=== PATIENT | female | born 2000 | race Hispanic/Latino ===

== ENCOUNTER 2020-01-07 13:05 | Observation (INO) | payer OTHER, SELFPAY ==
--- NOTE | 2020-01-07 13:05 | OBADM ---
This patient, Lenore Box, admitted to the OB room Labor/Delivery/Recovery 105 for observation. Patient/family oriented to hospital policies and general routines including ID bracelet, bed and alarms, visiting hours, pain management, procedures, bathroom and other care routines, personal items, smoking policy, room service/diet, and visiting hours. Patient/Family are encouraged to report perceived risks to care and to ask questions if they do not understand what they are told or what they should do.
[2020-01-07 16:41] VITALS: BMI 32.3
--- NOTE | 2020-01-16 07:44 | PM.OBTRLD ---
OB - Triage/Final Diagnosis Visit Information Date of evaluation: 01/09/20 Reason for evaluation: threatened labor
== END 2020-01-07 16:15 | disposition home or self-care (01) ==
PROVIDERS: Admitting Provider Obstetrics & Gynecology; Visit Provider Obstetrics & Gynecology
DX: O47.1 False labor at or after 37 completed weeks of gestation (principal); Z3A.40 40 weeks gestation of pregnancy
CPT/HCPCS: G0378; G0379

== ENCOUNTER 2020-01-09 04:54 | Inpatient (IN) | payer OTHER, SELFPAY ==
[2020-01-09] VITALS (47 sets, daily range): BP systolic 96–147; BP diastolic 65–120; PULSE 69–152; RESP 17–20; TEMP 36.7–37.4; O2SAT 96–100; BMI 30.2
--- NOTE | 2020-01-09 05:35 | LDADM ---
This patient, Lenore Box, was admitted to Labor/Delivery/Recovery 104 on 01/09/20 at 04:54. Plans for labor, pain management and were discussed with patient. Patient/family oriented to hospital policies and general routines including ID bracelet, bed and alarms, visiting hours, pain management, procedures, bathroom and other care routines, personal items, smoking policy, room service/diet and guest tray routines, infant security routines, and visiting hours. Patient/Family are encouraged to report perceived risks to care and to ask questions if they do not understand what they are told or what they should do. See OBIX for further documentation.
[2020-01-09 05:37] LABS: Basophils Absolute Auto 0.1 K/mm3 (0.0-0.1); Basophils Percent Auto 0.5 % (0.2-1.2); Eosinophils Absolute Auto 0.3 K/mm3 (0-0.3); Eosinophils Percent Auto 2.6 % (0-4.4); Hematocrit 34.9 % (37.0-47.0); Hemoglobin 10.5 g/dL (12.0-15.0); Immature Granulocyte Absolute 0.06 K/mm3 (0.00-0.031); Immature Granulocyte Percent A 0.6 % (0-0.5); Lymphocytes Percent Auto 12.4 % (18.3-44.2); Mean Corpuscular HGB Conc 30.1 g/dl (32-36); Mean Corpuscular Hemoglobin 22.7 pg (26-34); Mean Corpuscular Volume 75.4 fl (80-100); Mean Platelet Volume 11.6 fl (7.4-10.4); Monocytes Absolute Auto 0.8 K/mm3 (0.1-0.6); Monocytes Percent Auto 8.6 % (2.6-8.5); Neutrophils Absolute Auto 7.3 K/mm3 (1.3-6.7); Neutrophils Percent Auto 75.3 % (45.5-73.1); Platelet Count Result 152 k/mm3 (150-375); Red Blood Count 4.63 M/mm3 (4.2-5.4); Red Cell Distribution Width 15.2 % (11.5-14.5); White Blood Count 9.7 K/mm3 (4.5-10.0)
[2020-01-09] MEDS: LACTATED RINGERS 1,000 ML 125 ML IV CONT ×4 (05:52→18:10)
--- NOTE | 2020-01-09 06:22 | P.PNAN_ITS ---
Anes - Eval Pre Procedure Procedure: Labor epidural Date/Time: 01/09/20 06:22 Surgeon: Irene Preop Diagnosis: pain during labor Pre Op Diagnosis: contractions Patient Data Age: 19 Gender: F Height: 1.55 m Weight: 72.7 kg Last Vital Signs Temp 36.9 C 01/09/20 05:12 Pulse 96 01/09/20 05:31 Resp 20 01/09/20 05:12 BP 129/86 01/09/20 05:31 Allergies Allergy/AdvReac Type Severity Reaction Status Date / Time No Known Allergies Allergy Verified 12/05/19 13:44 Home Medications Medication Instructions Recorded Confirmed Type PNV cmb#95-ferrous fumarate-FA 1 tablet PO DAILY 12/05/19 12/05/19 History [] Laboratory Tests 01/09/20 01/09/20 05:30 05:30 WBC 9.7 K/mm3 K/mm3 (4.5-10.0) RBC 4.63 M/mm3 M/mm3 (4.2-5.4) Hgb 10.5 g/dL L g/dL (12.0-15.0) Hct 34.9 % L % (37.0-47.0) MCV 75.4 fl L fl (80-100) MCH 22.7 pg L pg (26-34) MCHC 30.1 g/dl L g/dl (32-36) RDW 15.2 % H % (11.5-14.5) Plt Count 152 k/mm3 k/mm3 (150-375) MPV 11.6 fl H fl (7.4-10.4) Immature Gran % (Auto) 0.6 % H % (0-0.5) Neut % (Auto) 75.3 % H % (45.5-73.1) Lymph % (Auto) 12.4 % L % (18.3-44.2) [place] % (Auto) 8.6 % H % (2.6-8.5) Eos % (Auto) 2.6 % % (0-4.4) Baso % (Auto) 0.5 % % (0.2-1.2) Lymph # (Auto) 1.20 K/mm3 K/mm3 (0.9-3.2) [place] # (Auto) 0.8 K/mm3 H K/mm3 (0.1-0.6) Eos # (Auto) 0.3 K/mm3 K/mm3 (0-0.3) Baso # (Auto) 0.1 K/mm3 K/mm3 (0.0-0.1) Abs Immat Gran (auto) 0.06 K/mm3 H K/mm3 (0.00-0.031) Absolute Neuts (auto) 7.3 K/mm3 H K/mm3 (1.3-6.7) Absolute Nucleated RBC 0.0 K/mm3 K/mm3 (0.0-0.012) Nucleated RBC % 0.0 % % (0.0-0.2) RPR Pending Patient hx anesthesia problems: none Family hx anesthesia problems: none PMFSH Social History Social History Smoking status: Never smoker Substance use: never Spiritual care concerns: No Exam Day of Procedure 01/09/20 06:22
--- NOTE | 2020-01-09 07:13 | P.HP_ITS ---
Obstetrics - Admit Note Admission Note: record reviewed. No pertinent additions to the history and/or any subsequent changes in the physical findings that are not consistent with the expected course of the were found. Pt arrived in labor, SVE 3/100/-2 AROM moderate amount of odorless meconium stained fluid. anticipate va ginal delivery Additions to the history and/or subsequent changes in the physical findings follow. None.
[2020-01-09 09:42] LABS: Rapid Plasma Reagin Non-Reactive (NonReactive)
[2020-01-09] MEDS: OXYTOCIN 30 UNITS/NS 500 ML 30 UNITS/500 ML BAG IV CONT (12:48)
[2020-01-09] MEDS: ONDANSETRON INJ 4 MG/2 ML VIAL IV PUSH (14:55)
[2020-01-09] MEDS: MISOPROSTOL 200 MCG TABLET 1000 MCG (17:59)
--- NOTE | 2020-01-09 18:12 | PM.OBPRVD ---
OB - Delivery Note Procedure Delivery date: 01/09/20 Procedure: vaginal delivery Delivery augmentation: rupture of membranes Delivery monitor: external FHT and external uterine Route of delivery: Laceration description: Labial (right) Delivery repair: vicryl Specimen: No Estimated blood loss (mL): 731 Anesthesia type: Local (for repair) Disposition: other () Complications: bleeding heavier than expected after placenta, pitocin running, cytotec 1000mcg, manual exploration of uterus and small piece of amnion removed. bleeding slowed down significantly and mother and baby in stabel condition Baby Date of : 01/09/20 Time of : 17:43 Weeks of gestation at delivery: 40 Infant gender: Male Weight (pounds): 7 Weight (ounces): 8 presentation: vertex position: Left Occiput Anterior Placenta delivery description: Spontaneous and Manual Removal cord vessel description: 3 Vessels, Nuchal Cord, Tight (X3) and Clamped/Cut score one minute: 8 score five minutes: 9
[2020-01-09] MEDS: ceFAZolin 2 GM/D5W 50 ML 2 GM/50 ML BAG IVPB (18:19)
[2020-01-09] MEDS: OXYTOCIN 30 UNITS/NS 500 ML 30 UNITS/500 ML BAG 125 UNITS IV CONT (18:19)
--- NOTE | 2020-01-09 20:46 | OBPPTRN ---
Patient transferred to post room #284 via wheelchair with in crib. Support person present. Oriented to unit, room, information board, rooming in, admission packet and security measures. Patient verbalizes understanding.
[2020-01-10] MEDS: IBUPROFEN 600 MG TABLET PO ×3 (00:33→13:25)
[2020-01-10] MEDS: ACETAMINOPHEN 325 MG TABLET 650 MG PO ×4 (05:50→17:50)
[2020-01-10 06:08] LABS: Hematocrit 25.5 % (37.0-47.0); Hemoglobin 7.8 g/dL (12.0-15.0)
--- NOTE | 2020-01-10 07:20 | PC.NURSE ---
PT introductions made and plan of care discussed per post , pain management, breast feeding, daily care activities and supplementation. Pending discharge to home.
[2020-01-10] MEDS: BENZOCAINE 20% AER SPR (*SP) 56 GM CAN 1 SPRAY TOPICAL (09:30)
[2020-01-10] MEDS: WITCH HAZEL 40 PADS 1 PAD TOPICAL (09:30)
[2020-01-10] MEDS: LANOLIN (LANSINOH) 7.5 GM CREAM 1 APPLIC TOPICAL (09:38)
[2020-01-10] MEDS: DOCUSATE SODIUM 100 MG CAPSULE PO ×2 (09:38→17:50)
[2020-01-10] MEDS: POLYSACCHARIDE IRON COMPLEX 150 MG CAPSULE PO ×2 (09:38→17:50)
[2020-01-10] MEDS: MULTIVIT/MIN/PREN/FOL AC/IRON TABLET 1 TAB PO (09:38)
--- NOTE | 2020-01-10 10:18 | PM.OBPNVD ---
OB - PN: Subj Subjective Date/time seen: 01/10/20 10:18 Patient comments: no complaints, pain well controlled and other (Lochia similar to menses) [place] baby status: doing well OB - PN: Obj Data Labs CBC & Chem 7: 01/10/20 05:59 Labs: Laboratory Results - last 24 hr 01/10/20 05:59 Hgb 7.8 L Hct 25.5 L OB - PN A/P Plan day: 1 (s/p vaginal delivery, doing well) Plan: routine care Time Spent With Patient Time: Total time spent is greater than 50% in coordination of care (as documented) at patient's floor/unit and/or counseling patient: Exam Const: General: no acute distress GI: Inspection: other (Fundus firm and nontender at umbilicus) GI Palp: Yes Soft to palpation and No Tenderness to palpation present (GI) Extrem: General: no edema
[2020-01-10 10:30] VITALS: BP 100/64; PULSE 77; RESP 16; RESP 18; TEMP 36.6; O2SAT 100
[2020-01-10 21:30] VITALS: BP 111/66; PULSE 80; RESP 17; TEMP 36.9
--- NOTE | 2020-01-11 07:20 | PC.NURSE ---
P introductions made and plan of care discussed per post , pain management, breast feeding, daily care activities and pending discharge to home. PT verbalized understanding of such care.
--- NOTE | 2020-01-11 08:39 | P.PNOB_ITS ---
OB - PN: Subj Subjective Date/time seen: 01/11/20 08:39 Patient comments: no complaints, pain well controlled and other (Lochia similar to menses) [place] baby status: doing well OB - PN: Obj Data Labs CBC & Chem 7: 01/10/20 05:59 OB - PN A/P Plan day: 2 (s/p vaginal delivery, doing well) Plan: routine care, discharge home and other (Follow up in office in 4 weeks) Time Spent With Patient Time: Total time spent is greater than 50% in coordination of care (as documented) at patient's floor/unit and/or counseling patient: Exam Const: General: no acute distress GI: Inspection: other (Fundus firm and nontender below umbilicus) GI Palp: Yes Soft to palpation and No Tenderness to palpation present (GI) Extrem: General: no edema
--- NOTE | 2020-01-11 10:00 | PC.NURSE ---
Patient viewed the discharge video Mother & Baby Care, The First Two Weeks . Patient was given the opportunity and encouraged to ask questions. Patient verbalized understanding of information shared and has been given the mother/baby guide for home reference.
[2020-01-11] MEDS: DOCUSATE SODIUM 100 MG CAPSULE PO (10:12)
[2020-01-11] MEDS: IBUPROFEN 600 MG TABLET PO (10:13)
[2020-01-11] MEDS: POLYSACCHARIDE IRON COMPLEX 150 MG CAPSULE PO (10:14)
[2020-01-11] MEDS: MULTIVIT/MIN/PREN/FOL AC/IRON TABLET 1 TAB PO (10:14)
[2020-01-11 10:15] VITALS: BP 128/75; PULSE 107; RESP 18; TEMP 36.8; O2SAT 99
--- NOTE | 2020-01-11 10:15 | PC.NURSE ---
PT received discharge instructions per protocol and verbalized understanding of such instructions
--- NOTE | 2020-01-11 10:46 | PC.NURSE ---
PT discharged to home ambulatory accompanied by both her mother and infant to waiting car. Follow up appts confirmed
--- NOTE | 2020-01-15 08:24 | PCCCNOTE ---
Care Coordination Note: Met with pt. today. Pt. lives at home with her family. FOB is involved and supportive. Pt. has all necessary belongings for baby including a crib, car seat, clothing, diapers etc. Pt. denies any further needs. Reports family support and involvement.
--- NOTE | 2020-01-16 07:47 | PM.OBDSVD ---
DS: Diagnosis Admitting Diagnosis Admitting Diagnosis: Encounter for supervision of normal , unspecified, third trimester OB - DS: Summary OB Procedures : None OB Procedures Intrapartum: Spontaneous Vag Delivery OB Procedures: : None Time Spent with Patient Time attestation: Total time spent providing and/or coordinating discharge services: Discharge Plan Discharge Attending physician on discharge: Inez Bonilla Consulting providers: Eloina Tatum Discharging Clinician: Michelle Estrada Patient Disposition: Home, Self-Care Activity: may shower and pelvic rest Diet: regular Discharge Instructions: Education: Mom and Baby Guide Given to: Mother Follow-Up: Call your delivering provider's office for an appointment to be seen in: 4 Weeks Mom and baby should come to the [facility] for the follow-up appointment. Appointment Date/Time: January 13, 2020 at 9:00 am What to expect at your follow-up visit: Blood Pressure Check Call [phone] if you are unable to keep your appointment time. BREAST CARE: 1. Wear a snug supportive bra. 2. For engorgement discomfort: Breast Feeding: A. Apply warm moist washcloths B. Express milk as needed to relieve engorgement C. Wear loose clothing Bottle Feeding: A. May apply ice packs 3. For sore nipples: A. Identify correct latch-on B. Apply warm moist washcloths before and after nursing C. Air dry nipples after nursing D. May apply Lansinoh cream to nipples PERINEAL CARE: 1. Until bleeding stops, use your ever bottle after urinating 2. Change your pad frequently throughout the day 3. You may take sitz baths several times a day (fill your bathtub with warm water and soak for 20 minutes.) Do NOT bathe in the water 4. No tub baths until seen by your physician - You may shower ACTIVITY: 1. Rest as much as possible. 2. Do not exercise or lift anything heavier than your baby (such as laundry or other children.) 3. Avoid stairs or driving as much as possible. 4. Do not put anything into the vagina. No douching, tampons, or sexual activity until seen by physician. NOTIFY PHYSICIAN IF YOU HAVE ANY QUESTIONS OR IF ANY OF THE FOLLOWING SYMPTOMS OCCUR: 1. If your perineum becomes red, swollen, or more painful than what you have experienced in the hospital. 2. If your vaginal bleeding becomes foul smelling. 3. If your vaginal bleeding becomes more heavy than a period or if your bleeding changes from pink to bright red. However, you may pass an occasional walnut-sized clot once or twice for the first week . 4. If you experience a sharp, shooting pain in you calves. 5. If you discover a hard, reddened area on your breast or if you experience flu-like symptoms. 6. Call for temp 100.4 or greater DIET: 1. Eat regular, well-balanced meals. 2. Drink plenty of fluids daily. If , drink to thirst. Patient Instructions: Antibiotic Form Stand Alone Forms: General Discharge Information Follow-up/Referrals: Eloina Tatum CNM [Certified Nurse Reservations Manager] - 4 Weeks Discharge Medications: New ibuprofen 600 mg Tablet 600 mg PO Q6H PRN (Reason: Cramping) Qty: 60 RF: 0 Continued PNV cmb#95-ferrous fumarate-FA [] 28 mg iron- 800 mcg Tablet 1 tablet PO DAILY RF: 0 Date of admission: 01/09/20 04:54 Primary Care Provider: UNKNOWN,DOCTOR Admitting Provider: Inez Bonilla Discharge Date/Time: 01/11/20 10:46 Attending physician on admission: Michelle Estraad
== END 2020-01-11 10:46 | disposition home or self-care (01) | DRG 560 ==
LOC: ANHLDR 05:18 → ANHOB2 01-11 08:40 → ANHLDR 01-14 08:21 → ANHOB2 01-14 08:21
PROVIDERS: Advanced Practice Midwife; Admitting Provider Obstetrics & Gynecology; Visit Provider Obstetrics & Gynecology
DX: O77.0 Labor and delivery complicated by meconium in amniotic fluid (principal); O69.1XX0 Labor and delivery complicated by cord around neck, with compression, not applicable or unspecified; O70.0 First degree perineal laceration during delivery; Z3A.40 40 weeks gestation of pregnancy; Z37.0 Single live birth
CPT/HCPCS: 36415; 85014; 85018; 85025; 86592; 86850; 86900; 86901; A9270; J0690; J2405; J2590; J3010; J7120

== ENCOUNTER 2022-01-14 21:01 | Observation (INO) | payer OTHER, SELFPAY ==
[2022-01-14] VITALS (7 sets, daily range): BP systolic 97–106; BP diastolic 52–65; PULSE 104–113; BMI 29.1
[2022-01-14 22:02] LABS: Add Urine Microscopic? YES; Appearance Urine Clear (Clear); Bilirubin Urine Negative (Negative); Blood Urine Negative (Negative); Color Urine Yellow (Yellow); Glucose Urine UA Negative (Negative); Ketones Urine 1+ mg/dL (Negative); Leukocyte Esterase Ur Negative LEU/UL (Negative); Mucus Urine Moderate /lpf; Nitrate Urine Negative (Negative); Protein Urine Negative (Negative); Squamous Epithelial Cell Urine Rare /hpf (Few); Urobilinogen Urine Negative mg/dL (<2.0)
[2022-01-14 22:26] LABS: Specific Grav Ur 1.032 (1.001-1.035)
--- NOTE | 2022-01-14 22:29 | OBADM ---
This patient, Lenore Box, admitted to the OB room OB Post 117 for observation. Patient/family oriented to hospital policies and general routines including ID bracelet, bed and alarms, visiting hours, pain management, procedures, bathroom and other care routines, personal items, smoking policy, room service/diet, and visiting hours. Patient/Family are encouraged to report perceived risks to care and to ask questions if they do not understand what they are told or what they should do.
--- NOTE | 2022-02-06 08:25 | PM.OBTRLD ---
OB - Triage/Final Diagnosis Visit Information Comments/Additional reasons for admission: I have assessed the risk for this patient, Lenore Box, and determined that she would benefit from observation care. Evaluation Laboratory results: Laboratory Tests 01/14/22 21:45 Urine Color Yellow Urine Appearance Clear Urine pH 6.0 Ur Specific [place] 1.032 Urine Protein Negative Urine Glucose (UA) Negative Urine Ketones 1+ H Ur Blood (Man) Negative Urine Nitrate Negative Urine Bilirubin Negative Urine Urobilinogen Negative Leukocyte Esterase Rfl Negative Urine RBC 3-5 H Ur Squamous Epith Cells Rare Urine Mucus Moderate H Final Diagnosis (1) False labor: Code(s): O47.9 - False labor, unspecified Status: Acute
== END 2022-01-14 22:57 | disposition home or self-care (01) ==
PROVIDERS: Admitting Provider Obstetrics & Gynecology; Visit Provider Obstetrics & Gynecology
DX: O47.02 False labor before 37 completed weeks of gestation, second trimester (principal); Z3A.22 22 weeks gestation of pregnancy
CPT/HCPCS: 81001; G0378; G0379

== ENCOUNTER 2022-05-21 12:23 | Inpatient (IN) | payer OTHER, SELFPAY ==
[2022-05-21] VITALS (22 sets, daily range): BP systolic 83–187; BP diastolic 44–143; PULSE 61–190; RESP 16; TEMP 36.2–36.8; O2SAT 99; BMI 33.8
--- NOTE | 2022-05-21 12:23 | LDADM ---
This patient, Lenore Box, was admitted to Labor 104 on 05/21/22 at 12:23. Plans for labor, pain management and were discussed with patient. Patient/family oriented to hospital policies and general routines including ID bracelet, bed and alarms, visiting hours, pain management, procedures, bathroom and other care routines, personal items, smoking policy, room service/diet and guest tray routines, infant security routines, and visiting hours. Patient/Family are encouraged to report perceived risks to care and to ask questions if they do not understand what they are told or what they should do. See OBIX for further documentation.
--- OUTSIDE RECORDS SUMMARY | 2022-05-21 12:44 | XMS_ITS | Encounter Summary ---
:2000 Author Care Team Providers Name Role Phone Latisha Wu Primary Care Provider [phone] Braeden Marley DO Primary Care Provider [phone] Reason for Visit None recorded. Assessment and Plan 1. Uterine size for dates discrepancy ? US, obstetric, follow-up Discussion Note: None recorded.Patient educational handouts: No information available. Plan of Care Reminders Provider Appointments U/S OB BPP 05/24/2022 Ultrasoundrn Tristan hernandez, TECH 10:30AM ? Nst 05/24/2022 Nst, , EQUIP 10:00AM ? Ob Routine 05/24/2022 Eloina Tatum CNM 11:00AM Lab None recorded. ? ? Referral None recorded. ? ? Procedures None recorded. ? ? Surgeries None recorded. ? ? Imaging US, Obstetric, 04/18/2022 [place] Follow-up Medications Name Start Date ? ? ondansetron 4 mg disintegrating tablet ? Place 1 tablet every day by translingual route as nee ded. + DHA ? Medications Administered None recorded. Vitals None recorded. Results Lab Results None recorded. Allergies Code Code System Name Reaction Severity Onset NKDA ? ? ? Notes: allergies to dust and animals Problems Name Status Onset Date Source ? Active 11/29/2021 ? Procedures Date Name Performed by ? 04/18/2022 US, Obstetric, Follow-up [place] [address]
--- OUTSIDE RECORDS SUMMARY | 2022-05-21 12:44 | XMS_ITS | Encounter Summary ---
:2000 Author Care Team Providers Name Role Phone Latisha Wu Primary Care Provider [phone] Braeden Marley DO Primary Care Provider [phone] Reason for Visit OB visit Assessment and Plan 1. Routine care Discussion Note: None recorded.Patient educational handouts: No information available. Plan of Care Reminders Provider Appointments U/S OB BPP 05/24/2022 10:30AM Ultrasoundr n Schedule, TECH ? Nst 05/24/2022 10:00AM Nst, , EQUI P ? Ob Routine 05/24/2022 11:00AM Eloina lerma CNM Lab None recorded. ? ? Referral None recorded. ? ? Procedures None recorded. ? ? Surgeries None recorded. ? ? Imaging None recorded. ? ? Medications Name Start Date ? ? ondansetron 4 mg disintegrating tablet ? Place 1 tablet every day by translingual route as nee ded. + DHA ? Medications Administered None recorded. Vitals Height Weight BMI Blood Pressure 5 ft 2 in 176 lbs 32.2 kg/m2 120/83 mm[Hg] Results Lab Results None recorded. Allergies Code Code System Name Reaction Severity Onset NKDA ? ? ? Notes: allergies to dust and animals Problems Name Status Onset Date Source ? Active 11/29/2021 ? Procedures Date Name Performed by ? 02/07/2022 US, Obstetric, Follow-up [place] [address] [place] [address] ([address])
--- OUTSIDE RECORDS SUMMARY | 2022-05-21 12:44 | XMS_ITS | Encounter Summary ---
:2000 Author Care Team Providers Name Role Phone Latisha Wu Primary Care Provider [phone] Braeden Marley DO Primary Care Provider [phone] Reason for Visit OB visit OB [id number] EDC 05/18/2022 LMP unsure Assessment and Plan Assessment Note Patient is _38__weeks . Discuss ed plan. 1. Routine care Discussion Note: None recorded.Patient [...] BMI Blood Pressure 5 ft 2 in 182 lbs 33.3 kg/m2 120/82 mm[Hg] Results Lab Results None recorded. Allergies Code Code System Name Reaction Severity Onset NKDA ? ? ? Notes: allergies to dust and animals Problems Name Status Onset Date Source ? Active 11/29/2021 ? Procedures Date Name Performed by ? 04/18/2022 US, Obstetric, Follow-up [place]
--- OUTSIDE RECORDS SUMMARY | 2022-05-21 12:44 | XMS_ITS | Encounter Summary ---
:2000 Author Care Team Providers Name Role Phone Latisha Wu Primary Care Provider [phone] Braeden Marley DO Primary Care Provider [phone] Reason for Visit OB visit OB [id number] EDC 05/18/2022 LMP unsure Assessment and Plan Assessment Note Patient is _37__weeks . Discuss ed plan. 1. Routine care [...] BMI Blood Pressure 5 ft 2 in 181 lbs 33.1 kg/m2 117/78 mm[Hg] Results Lab Results None recorded. Allergies Code Code System Name Reaction Severity Onset NKDA ? ? ? Notes: allergies to dust and animals Problems Name Status Onset Date Source ? Active 11/29/2021 ? Procedures Date Name Performed by ? 04/18/2022 US, Obstetric, Follow-up [place]
--- OUTSIDE RECORDS SUMMARY | 2022-05-21 12:44 | XMS_ITS | Encounter Summary ---
:2000 Author Care Team Providers Name Role Phone Latisha Wu Primary Care Provider [phone] Braeden Marley DO Primary Care Provider [phone] Reason for Visit OB visit Assessment and [...] BMI Blood Pressure 5 ft 2 in 178 lbs 32.6 kg/m2 112/72 mm[Hg] Results Lab Results None recorded. Allergies Code Code System Name Reaction Severity Onset NKDA ? ? ? Notes: allergies to dust and animals Problems Name Status Onset Date Source ? Active 11/29/2021 ? Procedures None recorded. Vaccine List None recorded. Social History Tobacco Smoking Status Never Smoker Do you have difficulty walking or climbing stairs? N What type of diet are you following? REGULAR What is the highest grade or level of school you have comple pola [id number]
--- OUTSIDE RECORDS SUMMARY | 2022-05-21 12:44 | XMS_ITS ---
:2000 Author Care Team Providers Name Role Phone ARIEL MARR Primary Care Provider [phone] ROBBIE DEL TORO DO Primary Care Provider [phone] Allergies Code Code System Name Reaction Severity Status Onset NKDA ? Notes: allergies to dust and animals Medications Name Status Start Date Stop Date ? ? azithromycin 500 mg tablet Completed 12/08/201910/18 take 2 tablet by oral route once metoclopramide 10 mg tablet Completed ? 04/2020 ondansetron 4 mg disintegrating tablet Active ? Not available Completed ? 11/07/2021 + DHA Active ? Not available Problems Name Status Onset Date Source ? Rubella Screening Status Unknown 10/20/2019 History , Childbirth and Puerperium Finding Unknown 11/2019 History , Childbirth and Puerperium Finding Unknown 02/2020 History Unknown 12/24/2019 ? Active 11/29/2021 ? Procedures Date Name Performed by ? 11/01/2021 US, Obstetric, 1St Trimester [place] [address] [place] [address] ([address]) 01/17/2022 US, Obstetric, 2Nd or 3Rd Trimester [facility] [address] [place] [address] ([address]) 02/07/2022 US, Obstetric, Follow-up [place] [address] [place] [address] (Work P
--- OUTSIDE RECORDS SUMMARY | 2022-05-21 12:44 | XMS_ITS | Encounter Summary ---
:2000 Author Care Team Providers Name Role Phone Latisha Wu Primary Care Provider [phone] Braeden Marley DO Primary Care Provider [phone] Reason for Visit OB visit OB [id number] EDC 05/18/2022 LMP unsure Assessment and Plan Assessment Note Patient is _39__weeks . Discuss ed plan. 1. Routine care [...] BMI Blood Pressure 5 ft 2 in 184 lbs 33.7 kg/m2 121/77 mm[Hg] Results Lab Results None recorded. Allergies Code Code System Name Reaction Severity Onset NKDA ? ? ? Notes: allergies to dust and animals Problems Name Status Onset Date Source ? Active 11/29/2021 ? Procedures Date Name Performed by ? 04/18/2022 US, Obstetric, Follow-up [place]
--- OUTSIDE RECORDS SUMMARY | 2022-05-21 12:44 | XMS_ITS | Encounter Summary ---
:2000 Author Care Team Providers Name Role Phone Latisha Wu Primary Care Provider [phone] Braeden Marley DO Primary Care Provider [phone] Reason for Visit OB visit OB [id number] EDC 05/18/2022 LMP unsure Assessment and Plan Assessment Note Patient is __34_weeks . Discuss ed plan. 1. Routine care [...] ft 2 in 178 lbs 32.6 kg/m2 102/68 mm[Hg] Results Lab Results None recorded. Allergies Code Code System Name Reaction Severity Onset NKDA ? ? ? Notes: allergies to dust and animals Problems Name Status Onset Date Source ? Active 11/29/2021 ? Procedures None recorded. Vaccine List None recorded. Social History Tobacco Smoking Status Never Smoker Do you have diffic
--- NOTE | 2022-05-21 13:02 | WPDOBADMIT ---
Obstetrics - Admit Note Admission Note: record reviewed. No pertinent additions to the history and/or any subsequent changes in the physical findings that are not consistent with the expected course of the were found. Pt arrived in active labor, anticipate vaginal delivery Additions to the history and/or subsequent changes in the physical findings follow. None.
[2022-05-21 13:10] LABS: Basophils Percent Auto 0.5 % (0.2-1.2); Eosinophils Absolute Auto 0.2 K/mm3 (0-0.3); Eosinophils Percent Auto 3.2 % (0-4.4); Hematocrit 38.1 % (37.0-47.0); Hemoglobin 11.8 g/dL (12.0-15.0); Immature Granulocyte Absolute 0.03 K/mm3 (0.00-0.031); Immature Granulocyte Percent A 0.5 % (0-0.5); Lymphocytes Absolute Auto 1.07 K/mm3 (0.9-3.2); Lymphocytes Percent Auto 17.1 % (18.3-44.2); Mean Corpuscular Hemoglobin 24.4 pg (26-34); Mean Corpuscular Volume 78.7 fl (80-100); Mean Platelet Volume 12.5 fl (7.4-10.4); Monocytes Absolute Auto 0.5 K/mm3 (0.1-0.6); Monocytes Percent Auto 7.3 % (2.6-8.5); Neutrophils Absolute Auto 4.5 K/mm3 (1.3-6.7); Neutrophils Percent Auto 71.4 % (45.5-73.1); Platelet Count Result 138 k/mm3 (150-375); Red Blood Count 4.84 M/mm3 (4.2-5.4); Red Cell Distribution Width 14.8 % (11.5-14.5); White Blood Count 6.3 K/mm3 (4.5-10.0)
--- NOTE | 2022-05-21 13:37 | PM.OBPNLAB ---
Pain Control Date/time seen: 05/21/22 13:37 pt resting in between contractions Pelvic Exam Comments: sve /-2 arom moderate amount of clear odorless fluid
[2022-05-21] MEDS: LACTATED RINGERS 1,000 ML 2 ML IV CONT (15:00)
[2022-05-21] MEDS: OXYTOCIN 30 UNITS/NS 500 ML 30 UNITS/500 ML BAG 125 UNITS IV CONT ×2 (15:02→17:41)
--- NOTE | 2022-05-21 17:18 | P.PCNOB_ITS ---
OB - Delivery Note Procedure Delivery date: 05/21/22 Procedure: vaginal delivery Induction method: None Delivery augmentation: Rupture of Membranes and Pitocin Delivery monitor: External FHT and External Uterine Route of delivery: Episiotomy description: None Laceration Description: None Specimen: No Quantitative Blood Loss (ml): 75 Anesthesia type: None Disposition: Floor [place] Baby Date of : 05/21/22 Time of : 17:07 Weeks of gestation at delivery: 40 Infant gender: Male Weight (pounds): 8 Weight (ounces): 7 presentation: vertex position: Left Occiput Anterior Placenta delivery description: Spontaneous Cord Vessel Description: 3 Vessels, Nuchal Cord, Loose and Reduced score one minute: 8 score five minutes: 9 Narrative: mother and baby skin to skin in stable condition
[2022-05-21] MEDS: IBUPROFEN 600 MG TABLET PO (17:26)
--- NOTE | 2022-05-21 17:42 | PC.NURSE ---
Medication entered in error and unable to change. Oxytocin IV started at 1502 at 2 ml/hr per verbal order from Mackenzie LE. OBIX documentation verifies this. orders of 2nd oxytocin bag at 125 ml/hr documented correctly in [facility].
[2022-05-21] MEDS: ACETAMINOPHEN 325 MG TABLET 650 MG PO (20:10)
[2022-05-21] MEDS: WITCH HAZEL 40 PADS 1 PAD TOPICAL (20:10)
[2022-05-21] MEDS: BENZOCAINE 20% AER SPR (*SP) 56 GM CAN 1 SPRAY TOPICAL (20:10)
--- NOTE | 2022-05-21 21:38 | PC.NURSE ---
05/21/2022 at 2045 Patient transferred to post room #281 via wheelchair. Support person present. Oriented to unit, room, information board, rooming in, admission packet and security measures. Patient verbalizes understanding. The patient states she understands Martiniqu[place] very well and will translate for her significant and mother when they are present.
[2022-05-22 00:45] VITALS: BP 123/75; PULSE 62; RESP 16; TEMP 36.6; O2SAT 97
[2022-05-22 04:00] VITALS: BP 108/70; PULSE 71; RESP 16; TEMP 36.6; O2SAT 98
[2022-05-22 06:23] LABS: Hematocrit 35.8 % (37.0-47.0); Hemoglobin 10.9 g/dL (12.0-15.0)
[2022-05-22 07:55] VITALS: BP 123/65; PULSE 58; RESP 18; TEMP 35.9; O2SAT 100
[2022-05-22 09:17] LABS: Rapid Plasma Reagin Non-Reactive (NonReactive)
[2022-05-22] MEDS: ACETAMINOPHEN 325 MG TABLET 650 MG PO (10:23)
[2022-05-22] MEDS: IBUPROFEN 600 MG TABLET PO (10:25)
--- NOTE | 2022-05-22 10:27 | P.PNOB_ITS ---
OB - PN: Subj Subjective Date/time seen: 05/22/22 10:27 Patient comments: no complaints and pain well controlled baby status: doing well and bottle feeding well Narrative: would like DC home at 24 hours OB - PN: Obj Data Labs CBC & Chem 7: 05/22/22 04:02 Labs: Laboratory Results - last 24 hr 05/21/22 05/21/22 05/21/22 13:05 13:05 13:05 WBC 6.3 RBC 4.84 Hgb 11.8 L D Hct 38.1 MCV 78.7 L MCH 24.4 L MCHC 31.0 L RDW 14.8 H Plt Count 138 L MPV 12.5 H Immature Gran % (Auto) 0.5 Neut % (Auto) 71.4 Lymph % (Auto) 17.1 L [place] % (Auto) 7.3 Eos % (Auto) 3.2 Baso % (Auto) 0.5 Lymph # (Auto) 1.07 [place] # (Auto) 0.5 Eos # (Auto) 0.2 Baso # (Auto) 0.0 Abs Immat Gran (auto) 0.03 Absolute Neuts (auto) 4.5 Absolute Nucleated RBC 0.0 Nucleated RBC % 0.0 RPR Non-reactive Blood Type O Positive Antibody Screen Negative 05/22/22 04:02 WBC RBC Hgb 10.9 L Hct 35.8 L MCV MCH MCHC RDW Plt Count MPV Immature Gran % (Auto) Neut % (Auto) Lymph % (Auto) [place] % (Auto) Eos % (Auto) Baso % (Auto) Lymph # (Auto) [place] # (Auto) Eos # (Auto) Baso # (Auto) Abs Immat Gran (auto) Absolute Neuts (auto) Absolute Nucleated RBC Nucleated RBC % RPR Blood Type Antibody Screen OB - PN A/P Plan day: 1 Plan: routine care and discharge home Comments: DC instructions given. Time Spent With Patient Time: Total time spent is greater than 50% in coordination of care (as documented) at patient's floor/unit and/or counseling patient: Time with patient: less than 15 minutes Exam Narrative: NAD abdomen soft, nontender, fundus firm below the umbilicus Extremities nontender, 1+ edema
--- NOTE | 2022-05-22 10:30 | PM.DS ---
DS: Admitting Diagnosis Discharge Date 05/22/22 Admitting Diagnosis term , labor DS: Discharge Diagnosis Discharge Diagnosis (1) , delivered: Code(s): O80 - Encounter for full-term uncomplicated delivery Status: Acute DS: Summary Hospital Course Hospital Course: Pt was admitted in labor and had an uncomplicated vaginal delivery and course. She was discharged home on post day 1. Status at Discharge Functional status at discharge: independent ambulation Time Spent with Patient Time attestation: Total time spent providing and/or coordinating discharge services: Exam Narrative: NAD abdomen soft, appropriately tender Ext non tender, 1+ edema DS: Data Data Completed and Pending Labs on day of discharge: Labs from last 24 hours 05/22/22 05/21/22 05/21/22 04:02 13:05 13:05 WBC RBC Hgb 10.9 L Hct 35.8 L MCV MCH MCHC RDW Plt Count MPV Immature Gran % (Auto) Neut % (Auto) Lymph % (Auto) [place] % (Auto) Eos % (Auto) Baso % (Auto) Lymph # (Auto) [place] # (Auto) Eos # (Auto) Baso # (Auto) Abs Immat Gran (auto) Absolute Neuts (auto) Absolute Nucleated RBC Nucleated RBC % RPR Non-reactive Blood Type O Positive Antibody Screen Negative 05/21/22 13:05 WBC 6.3 RBC 4.84 Hgb 11.8 L D Hct 38.1 MCV 78.7 L MCH 24.4 L MCHC 31.0 L RDW 14.8 H Plt Count 138 L MPV 12.5 H Immature Gran % (Auto) 0.5 Neut % (Auto) 71.4 Lymph % (Auto) 17.1 L [place] % (Auto) 7.3 Eos % (Auto) 3.2 Baso % (Auto) 0.5 Lymph # (Auto) 1.07 [place] # (Auto) 0.5 Eos # (Auto) 0.2 Baso # (Auto) 0.0 Abs Immat Gran (auto) 0.03 Absolute Neuts (auto) 4.5 Absolute Nucleated RBC 0.0 Nucleated RBC % 0.0 RPR Blood Type Antibody Screen Discharge Plan Discharge Attending physician on discharge: Joy Reyna Discharging Clinician: Joy Reyna Anticipated Discharge Date/Time: 05/22/22 18:00 Patient Disposition: Home, Self-Care Activity: pelvic rest Diet: regular Patient Instructions: Antibiotic Form Stand Alone Forms: General Discharge Information Follow-up/Referrals: Inez Bonilla MD [Physician] - 4 Weeks Discharge Medications: Continued PNV [id number] [] 28 mg iron- 800 mcg Tablet 1 tablet PO DAILY Date of admission: 05/21/22 12:23 Primary Care Provider: PHYSICIAN,SULFIDE HEAD OPERATOR Admitting Provider: Inez Bonilla Attending physician on admission: Inez Bonilla Condition: Stable
[2022-05-22 12:30] VITALS: BP 121/69; PULSE 68; RESP 18; TEMP 36.6; O2SAT 98
== END 2022-05-22 20:40 | disposition home or self-care (01) | DRG 560 ==
LOC: ANHOB2 05-22 19:08 → ANHLDR 05-24 12:48 → ANHOB2 05-24 12:48
PROVIDERS: Advanced Practice Midwife; Admitting Provider Obstetrics & Gynecology; Visit Provider Obstetrics & Gynecology
DX: O80 Encounter for full-term uncomplicated delivery (principal); Z37.0 Single live birth; Z3A.40 40 weeks gestation of pregnancy
CPT/HCPCS: 36415; 85014; 85018; 85025; 86592; 86850; 86900; 86901; A9270; J2590; J7120

== ENCOUNTER 2023-07-09 12:49 | Emergency (ER) | payer OTHER, SELFPAY ==
[2023-07-09 13:02] VITALS: BP 116/70; PULSE 97; RESP 16; TEMP 36.9; O2SAT 98
--- NOTE | 2023-07-09 13:23 | ED.SKABFB ---
HPI - Skin/Abscess/Foreign Bdy General Chief complaint: Skin/Abscess/Foreign Body Stated complaint: vaginal pain Time Seen by Provider: 07/09/23 13:23 Source: patient Mode of arrival: ambulatory Limitations: no limitations History of Present Illness HPI narrative: 23 yo F presents with c/o pain, redness and swelling to L groin for 2 days. Afebrile. No other complaints. All systems reviewed and negative except as noted above. Related Data Allergies Allergy/AdvReac Type Severity Reaction Status Date / Time No Known Allergies Allergy Verified 07/09/23 12:54 Review of Systems Review of Systems: CONSTITUTIONAL: Denies fever, chills, or sweats. EYES: Denies visual changes, redness, or discharge. ENT: Denies rhinorrhea, congestion, sore throat, or otalgia. CARDIOVASCULAR: Denies chest pain, palpitations, or edema. RESPIRATORY: Denies cough or dyspnea. GASTROINTESTINAL: Denies abdominal pain, nausea, vomiting, or diarrhea. GENITOURINARY: Denies dysuria or hematuria. SKIN: Denies rash or itching. Reports redness, swelling and pain to L groin. MUSCULOSKELETAL: Denies back pain, joint pain, or myalgia. NEUROLOGIC: Denies headache, numbness, or weakness. PSYCHIATRIC: Denies anxiety or depression. All other systems reviewed are negative, except as documented in HPI. [facility] Family History Family History Other Unknown family medical history Social History Social History Smoking status: Never smoker Substance use: never Spiritual care concerns: No Comments At time of signature, agree with nursing past medical, surgical, social and family history. There is no relevant family history pertinent to the presenting complaint. Exam Narrative: GENERAL: This is a well-nourished, well-developed patient, in no apparent distress. HEAD: normocephalic, atraumatic. EYES: PERRL. Sclera clear/white. Vision is grossly intact. EARS: External ears normal NOSE: External nose normal NECK: Neck supple, non-tender without lymphadenopathy, masses or thyromegaly. CARDIOVASCULAR: Regular rate and rhythm without murmurs, gallops, or rubs. RESPIRATORY: Clear to auscultation. Breath sounds equal bilaterally. No wheezes, rales, or rhonchi. SKIN: warm, Dry, intact with no suspicious lesions or rash, good texture and turgor. redness to L groin wear underwear sits. tender on palpation without fluctuance. no drainage. approx. 3cm diameter. pimple vs abscess. NEURO: awake, alert, and oriented to person, place and time. There were no obvious focal neurologic abnormalities. EXTREMITIES: No joint tenderness, effusion, or edema noted. Course Course Level of Care: Express Care Visit Vital Signs Vital signs: Vital Signs Temperature 36.9 C 07/09/23 13:02 Pulse Rate 97 07/09/23 13:02 Respiratory Rate 16 07/09/23 13:02 Blood Pressure 116/70 07/09/23 13:02 Pulse Oximetry 98 07/09/23 13:02 Oxygen Delivery Room Air 07/09/23 13:02 Temperature 36.9 C 07/09/23 13:02 Pulse Rate 97 07/09/23 13:02 Respiratory Rate 16 07/09/23 13:02 Blood Pressure 116/70 07/09/23 13:02 Pulse Oximetry 98 07/09/23 13:02 Oxygen Delivery Room Air 07/09/23 13:02 Reviewed MDM - Skin/Abscess/Foreign Bdy MDM Narrative Medical decision making narrative: Patient is aware of diagnosis, understands and agrees to treatment plan. Anticipatory guidance given. Patient agrees to follow-up as directed and is aware of reasons to seek care at the emergency department. Portions of this record may have been created with voice recognition software Discharge Plan Discharge Clinical Impression: Abscess of groin, left Patient Disposition: Home, Self-Care Condition: Stable Instructions: Antibiotic Form, Abscess (ED) Additional Instructions: Take antibiotics as prescribed until gone. Take ibuprofen every 6 to 8
== END 2023-07-09 13:30 | disposition home or self-care (01) ==
PROVIDERS: Emergency Provider Nurse Practitioner Family
DX: L02.214 Cutaneous abscess of groin (principal)
CPT/HCPCS: 99213; G0463

== ENCOUNTER 2024-04-14 15:43 | Emergency (ER) | payer OTHER, SELFPAY ==
[2024-04-14 15:56] VITALS: BP 119/73; PULSE 100; RESP 16; TEMP 36.9; O2SAT 100
--- NOTE | 2024-04-14 16:38 | ED.NAVMDI ---
HPI - Nausea/Vomiting/Diarrhea General Chief complaint: Nausea/Vomiting/Diarrhea Stated complaint: Nausea/Dizziness Time Seen by Provider: 04/14/24 16:41 Source: patient and RN notes reviewed Mode of arrival: ambulatory Limitations: no limitations History of Present Illness HPI Narrative: 23-year-old female presents concern for nausea without vomiting or diarrhea. She reports she has been having headache and intermittent dizziness as well. She denies fever, body aches, chills, sweats. Denies sore throat, nasal congestion, cough. Reports rhinorrhea. She has not taken any medications for her symptoms. She denies dysuria, frequency, urgency, back pain. Reports she does not have normal menstrual periods because she has a Nexplanon, she denies any chance of . MD elicited complaint: nausea Related Data Allergies Allergy/AdvReac Type Severity Reaction Status Date / Time No Known Allergies Allergy Verified 04/14/24 15:51 Review of Systems Review of Systems: CONSTITUTIONAL: Denies malaise, chills, sweats, or fever. ENT: Denies rhinorrhea, congestion, sinus pain, otalgia or sore throat. CARDIOVASCULAR: Denies chest pain, palpitations, or edema. RESPIRATORY: Denies cough or dyspnea. GASTROINTESTINAL: Denies abdominal pain, vomiting, diarrhea, bloody, or mucous stools. Reports abdominal cramping and nausea GENITOURINARY: Denies dysuria or hematuria. MUSCULOSKELETAL: Denies myalgia. NEUROLOGIC: Denies headache. All systems reviewed & are unremarkable except as noted in HPI and below PMFSH Family History Family History Other Unknown family medical history Social History Social History Smoking status: Never smoker Substance use: never Spiritual care concerns: No Comments At time of signature, agree with nursing past medical, surgical, social and family history. There is no relevant family history pertinent to the presenting complaint Exam Narrative: GENERAL: Well-appearing, well-nourished, and in no acute distress. HEAD: Normocephalic, atraumatic. EYES: PERRLA, conjunctivae clear, and EOMI. ENT: Nares clear, turbinates pink, no rhinorrhea or epistaxis. Mucous membranes moist. Oropharynx without edema, erythema, or lesions. Tonsils not enlarged and without exudate. NECK: Supple. No lymphadenopathy CHEST: Speaks in full sentences. No respiratory distress. HEART: Regular rate and rhythm. ABDOMEN: Soft, obese, nondistended, nontender. No guarding, rebound tenderness, or rigidity. No pulsatile masses. Bowel sounds present in all four quadrants. No organomegaly. No Supra public tenderness or distension. Good femoral pulses bilaterally. No hernia noted. No scars or surface trauma. SKIN: Warm, dry, no rash. NEURO: Alert and oriented x3. PSYCH: Normal mood and affect Course Course Emergency Course: Patient is aware of diagnosis, understands and agrees to treatment plan. Anticipatory guidance given. Patient agrees to follow-up as directed and is aware of reasons to seek care at the emergency department. Portions of this record may have been created with voice recognition software Level of Care: Express Care Visit Vital Signs Vital signs: Vital Signs Temperature 98.4 F 04/14/24 15:56 Pulse Rate 100 04/14/24 15:56 Respiratory Rate 16 04/14/24 15:56 Blood Pressure 119/73 04/14/24 15:56 Pulse Oximetry 100 04/14/24 15:56 Oxygen Delivery Room Air 04/14/24 15:56 Temperature 98.4 F 04/14/24 15:56 Pulse Rate 100 04/14/24 15:56 Respiratory Rate 16 04/14/24 15:56 Blood Pressure 119/73 04/14/24 15:56 Pulse Oximetry 100 04/14/24 15:56 Oxygen Delivery Room Air 04/14/24 15:56 Reviewed. MDM - Nausea/Vomiting/Diarrhea MDM Narrative Medical decision making narrative: No evidence of pancreatitis, AAA, cholecystitis, choledocholithiasis, cholangitis, mese
[2024-04-14 16:49] LABS: EDSTREPNEGPOS1 Presumptive Negative
== END 2024-04-14 17:11 | disposition home or self-care (01) ==
PROVIDERS: Emergency Provider Nurse Practitioner
DX: R11.0 Nausea (principal)
CPT/HCPCS: 87081; 87880; 99213; G0463

== ENCOUNTER 2025-08-16 12:34 | Emergency (ER) | payer OTHER, SELFPAY ==
[2025-08-16 12:40] VITALS: BP 117/67; PULSE 70; RESP 18; TEMP 36.4; O2SAT 97
--- NOTE | 2025-08-16 13:26 | ED.GENADULT ---
HPI - General Adult General Chief complaint: Skin/Abscess/Foreign Body Stated complaint: skin irritation, pain from control removal Time Seen by Provider: 08/16/25 12:53 History of Present Illness HPI narrative: Patient is a 25-year-old female who presents ER have a suture removed. She had a Nexplanon removed and then another 1 implanted approximately 10 days ago. She would like the suture out. Mild irritation of skin from a bandage but no fevers or chills or drainage. Related Data Allergies Allergy/AdvReac Type Severity Reaction Status Date / Time No Known Allergies Allergy Verified 08/16/25 12:42 Review of Systems Constitutional: Constitutional: Reports no additional constitutional complaints Integumentary/Breasts: Skin/Breast: Reports system reviewed and no additional complaints, except as docu PMFSH Family History Family History Other Unknown family medical history Social History Social History Smoking status: Never smoker Substance use: never Spiritual care concerns: No Exam Narrative: GENERAL: Well-appearing, well-nourished, and in no acute distress. HEAD: Normocephalic, atraumatic. ENT: Mucous membranes moist. EXTREMITIES: Normal range of motion. No edema. SKIN: Warm, dry, well healed Nexplanon implantation site left arm with mild irritation from bandage. NEURO: Alert and oriented x3. PSYCH: Normal mood and affect. Course Course Emergency Course: Suture removed. Discharge. Vital Signs Vital signs: Vital Signs Temperature 97.6 F 08/16/25 12:40 Pulse Rate 70 08/16/25 12:40 Respiratory Rate 18 08/16/25 12:40 Blood Pressure 117/67 08/16/25 12:40 Pulse Oximetry 97 08/16/25 12:40 Oxygen Delivery Room Air 08/16/25 12:40 Temperature 97.6 F 08/16/25 12:40 Pulse Rate 70 08/16/25 12:40 Respiratory Rate 18 08/16/25 12:40 Blood Pressure 117/67 08/16/25 12:40 Pulse Oximetry 97 08/16/25 12:40 Oxygen Delivery Room Air 08/16/25 12:40 Medical Decision Making MDM Narrative Medical decision making narrative: Cellulitis, abscess, contact dermatitis Vital Signs Vital Signs: Vital Signs Temperature 97.6 F 08/16/25 12:40 Pulse Rate 70 08/16/25 12:40 Respiratory Rate 18 08/16/25 12:40 Blood Pressure 117/67 08/16/25 12:40 Pulse Oximetry 97 08/16/25 12:40 Oxygen Delivery Room Air 08/16/25 12:40 Temperature 97.6 F 08/16/25 12:40 Pulse Rate 70 08/16/25 12:40 Respiratory Rate 18 08/16/25 12:40 Blood Pressure 117/67 08/16/25 12:40 Pulse Oximetry 97 08/16/25 12:40 Oxygen Delivery Room Air 08/16/25 12:40 Discharge Plan Discharge Clinical Impression: Encounter for removal of sutures Patient Disposition: Home Condition: Stable Additional Instructions: Return ER if you have any additional concerns or issues with your implantation site. Patient Language: Chinese Prescriptions: No Action promethazine 25 mg tablet 25 mg PO TID PRN (Reason: nausea and vomiting) Qty: 14 0RF Follow-up/Referrals: PHYSICIAN,SUPERINTENDENT AUTOMOTIVE [Primary Care Provider, Internal Medicine] Cesar Escudero MD [Physician, Family Practice]
== END 2025-08-16 13:58 | disposition home or self-care (01) ==
PROVIDERS: Emergency Provider Emergency Medicine
DX: Z48.02 Encounter for removal of sutures (principal)
CPT/HCPCS: 15853; 99282